=== PATIENT | female | born 1950 | race Caucasian/White ===

== ENCOUNTER 2019-04-12 09:19 | Outpatient (CLI) | payer OTHER | END 2019-04-12 21:12 | disposition home or self-care (01) | LOC: SMA 09:19 | PROVIDERS: ATTEND Family Medicine | DX: Z12.31 Encounter for screening mammogram for malignant neoplasm of breast (principal) | CPT/HCPCS: 77067 ==

== ENCOUNTER 2020-04-22 11:27 | Emergency (ER) | payer OTHER ==
[~2020-04-22] VITALS: Ht 152.4 cm; Wt 77.1 kg
[2020-04-22] MEDS ORDERED: DEXAMETHASONE SOD PHOSPHATE 10 MG/ML VIAL IVP ONE (11:45)
[2020-04-22] MEDS ORDERED: KETOROLAC TROMETHAMINE 30 MG VIAL IVP ONE (11:45)
--- NOTE | 2020-04-22 11:45 | NUR ---
PATIENT TO ER #[id number]
--- NOTE | 2020-04-22 11:49 | NUR ---
ER Dr. Moeller at bedside examining patient.
[2020-04-22 11:54] VITALS: BP_SYST 156
[2020-04-22] MEDS ORDERED: LOVA20TA2 PO (11:54)
[2020-04-22] MEDS ORDERED: LISI40TA4 PO (11:54)
[2020-04-22] MEDS ORDERED: AMLO5TAB92 (11:54)
[2020-04-22] MEDS ORDERED: HYDR25TA4 PO (11:54)
[2020-04-22] MEDS ORDERED: ASPI-524 PO (11:54)
[2020-04-22] MEDS ORDERED: DICL75TA5 PO (11:54)
--- NOTE | 2020-04-22 11:55 | NUR ---
Patient presented to ER C/O left knee pain. Patient ambulatory to ER, afebrile, skin pink, dry skin , pain 03/03, denes N/V/D. Patient states she has left knee pain & swelling since ; today she had difficulty ambulating.
--- NOTE | 2020-04-22 12:00 | NUR ---
REPORT TO JEAN PAUL DESHPANDE
[2020-04-22 12:01] LABS: BASOPHILS # (AUTO) 0.1 K/uL (0.0-0.2); BASOPHILS % (AUTO) 1.1 % (0.0-2.0); EOSINOPHILS # (AUTO) 0.1 K/uL (0.0-0.4); EOSINOPHILS % (AUTO) 1.2 % (0.0-4.0); HEMATOCRIT 38.4 % (36-48); HEMOGLOBIN 13.1 g/dL (12.0-16.0); LYMPHOCYTES # (AUTO) 1.4 K/uL (1.0-5.5); LYMPHOCYTES % (AUTO) 29.6 % (20.5-51.5); MEAN CORPUSCULAR HEMOGLOBIN 31 pg (27-31); MEAN CORPUSCULAR HGB CONC 34 % (32-36); MEAN CORPUSCULAR VOLUME 91 fL (79.0-98.0); MONOCYTES # (AUTO) 0.3 K/uL (0.0-1.0); MONOCYTES % (AUTO) 7.2 % (1.7-9.3); NEUTROPHILS % (AUTO) 60.9 % (40.0-70.0); PLATELET COUNT (AUTO) 268 K/uL (130-430); RED BLOOD CELL COUNT(AUTO) 4.22 MIL/uL (4.2-6.2); RED CELL DISTRIBUTION WIDTH 13.6 % (9.0-15.0); WHITE BLOOD COUNT (AUTO) 4.9 K/uL (4.8-10.8)
[2020-04-22 12:17] LABS: BILIRUBIN,URINE NEGATIVE (NEGATIVE); BLOOD, URINE NEGATIVE (NEGATIVE); CLARITY/URINE CLEAR (CLEAR); COLOR,URINE YELLOW (YELLOW); GLUCOSE,URINE NEGATIVE (NEGATIVE); KETONES,URINE NEGATIVE (NEGATIVE); LEUKOCYTE ESTERASE ,URINE 1+ (NEGATIVE); NITRITE, URINE NEGATIVE (NEGATIVE); PROTEIN URINE NEGATIVE (NEGATIVE); UROBILINOGEN,URINE 0.2 (0.2-1.0)
[2020-04-22 12:19] LABS: BACTERIA,URINE FEW /HPF (None Seen); RBC,URINE 0-3 /HPF (0-3)
[2020-04-22 12:20] LABS: ALBUMIN 4.1 g/dL (3.4-4.8); CREATININE 0.91 mg/dL (0.55-1.30); POTASSIUM 3.1 mmol/L (3.5-5.1); TOTAL BILIRUBIN 0.4 mg/dL (0.0-1.0)
[2020-04-22 12:51] LABS: ERYTHROCYTE SEDIMENTATION RATE 14 MM/HR (0-20)
--- NOTE | 2020-04-22 13:40 | NUR ---
Left knee wrapped with Bobo bandage.
--- NOTE | 2020-04-22 14:18 | NUR ---
Crutches properly fitted for patient by Jonathan GUERRERO. Patient given crutch walking instructions and demonstration. Is able to demonstrate adequate crutch walking technique with crutches provided.
[2020-04-22 14:25] VITALS: BP_SYST 151
--- NOTE | 2020-04-22 14:25 | NUR ---
Patient given written and verbal discharge instructions and verbalizes understanding. ER MD discussed with patient the results and treatment provided. Patient in stable condition. ID arm band removed. IV catheter removed intact and dressing applied, no active bleeding. Rx of keflex & Tylenol given. Patient educated on pain management and to follow up with PMD. Pain Scale 3/10 tolerable for patient . Opportunity for questions provided and answered. Medication side effect fact sheet provided.
== END 2020-04-22 14:25 | disposition home or self-care (01) ==
LOC: SED 11:27
DX: M13.861 Other specified arthritis, right knee (principal); N39.0 Urinary tract infection, site not specified; M25.561 Pain in right knee; I10 Essential (primary) hypertension; I51.9 Heart disease, unspecified; Z79.899 Other long term (current) drug therapy; Z79.82 Long term (current) use of aspirin
CPT/HCPCS: 36415; 73564; 80053; 81000; 85025; 85651; 87086; 96374; 96375; 99284; J1100; J1885

== ENCOUNTER 2020-10-05 08:20 | Outpatient (CLI) | payer OTHER ==
[~2020-10-05 08:20] MED LIST: AMLO5TAB92; ASPI-524 PO; DICL75TA5 PO; HYDR25TA4 PO; LISI40TA4 PO; LOVA20TA2 PO
== END 2020-10-05 20:52 | disposition home or self-care (01) ==
LOC: SMA 08:20
PROVIDERS: ATTEND Family Medicine
DX: Z12.31 Encounter for screening mammogram for malignant neoplasm of breast (principal)
CPT/HCPCS: 77067

== ENCOUNTER 2021-12-18 08:53 | Outpatient (CLI) | payer OTHER ==
[~2021-12-18 08:53] MED LIST changes: +LISI40TA13 PO; -LISI40TA4 PO
== END 2021-12-18 19:28 | disposition home or self-care (01) ==
LOC: SMA 08:53
PROVIDERS: ATTEND Family Medicine
DX: Z12.31 Encounter for screening mammogram for malignant neoplasm of breast (principal); N64.89 Other specified disorders of breast
CPT/HCPCS: 77067

== ENCOUNTER 2023-01-09 12:29 | Outpatient (CLI) | payer OTHER | END 2023-01-09 19:41 | disposition home or self-care (01) | LOC: SMA 12:29 | DX: Z12.31 Encounter for screening mammogram for malignant neoplasm of breast (principal); N64.89 Other specified disorders of breast | CPT/HCPCS: 77067 ==